=== PATIENT | male | born 1980 | race Hispanic/Latino ===

== ENCOUNTER 2017-04-16 20:29 | Emergency (ER) | payer OTHER ==
[2017-04-16 20:42] VITALS: BP 146/93
[2017-04-16] MEDS ORDERED: OFLOXACIN 50 DROP BTL LEFT EAR ONE (20:54)
[2017-04-16] MEDS ORDERED: AMOX TR/POTASSIUM CLAVULANATE 875 MG TABLET PO ONE (20:54)
--- NOTE | 2017-04-16 21:01 | ERNOTE ---
ENT HPI Date of Service: 04/16/17 Presenting Symptoms: other - ear pain Time Seen by Provider: 04/16/17 20:47 Source: patient Exam Limitations: no limitations - Immun/Allergies/Home Medications Immunizations: IMMUNIZATION HX Immunizations Up to Date Yes History of Influenza Vaccine Yes Hx Pneumococcal Vaccination Yes Allergies/Adverse Reactions: Allergies Allergy/AdvReac Type Severity Reaction Status Date / Time No Known Allergies Allergy Verified 04/16/17 20:42 Home Medications: HOME MEDICATIONS oxyCODONE HCL/ACETAMINOPHEN [Percocet 5 MG/325 MG] 1 tab PO Q4H PRN #20 tab [Last Taken Unknown] - History of Present Illness Narrative: Pt. comes in with c/o L ear pain for 12 hours. Pt. denies any SOB, CP, NVD, fever, recent illness, or injury but does state that an hour ago the ear started to drain orange fluid from the ear. Severity: Present: moderate ENT Location: Present: ear (L) Prearrival Treatment: Present: over the counter meds Modifying Factors - Improves: Reports: medication Modifying Factors - Worsens: Reports: nothing Associated Symptoms - ENT: Reports: ear drainage Prior Treament: Denies: treated by physician, similar symptoms before Review of Systems - Review of Systems Constitutional: Present: no symptoms reported. Absent: recent illness, fever, chills, weakness, fatigue, malaise EYE: Present: no symptoms reported ENT: Present: ear pain. Absent: ear discharge, nose pain, nose congestion, nasal drainage Respiratory: Present: no symptoms reported. Absent: shortness of breath, cough , wheezing Cardiology: Present: no symptoms reported. Absent: chest pain, palpitations, edema Gastrointestinal/Abdominal: Present: no symptoms reported. Absent: nausea, vomiting, diarrhea Genitourinary: Present: no symptoms reported Musculoskeletal: Present: no symptoms reported. Absent: back pain, joint pain Skin: Present: no symptoms reported. Absent: rash, change in color Neurological: Present: no symptoms reported. Absent: headache, dizziness/light- headedness, numbness, tingling All Other Systems: All systems neg except as marked - Patient's Past Medical History Patient History - Medical: No pertinent hx Patient History - Cardiac/Respiratory: No pertinent hx Patient History - Cancer: No Hx of Cancer Patient History - Surgical Procedures: No surgical history Patient History - Other: None - Social History Living Situations: home Psych History: No pertinent hx Smoking Status: Former smoker Alcohol Use: none Drug Use: none - Immunizations Immunizations Up to Date: Yes Hx Pneumococcal Vaccination: Yes History of Influenza Vaccine: Yes Physical Exam - Physical Exam General Appearance: Present: wd/wn, alert, no apparent distress Head Exam: Present: normal inspection, no evidence of injury Eye Exam: Normal inspection: bilateral, PERRL: bilateral, EOMI: bilateral Ears, Nose, Throat: Present: abnormal TM (L) - ruptured with purulent drainage, tonsillar exudate. Absent: abnormal TM (R), nasal congestion, sinus pain/ drainage Neck: Present: normal inspection, nontender. Absent: lymphadenopathy (R), lymphadenopathy (L) Respiratory: Present: no respiratory distress, normal breath sounds, no accessory muscle use, chest nontender, lungs clear Cardiovascular/Chest: Present: regular rate, rhythm, no murmur, normal peripheral pulses Gastrointestinal/Abdominal: Present: normal bowel sounds, nontender, nondistended, soft, no organomegaly Back Exam: Present: normal inspection Extremity Exam: Present: normal inspection Neurological Exam: Present: alert, oriented, normal mood/affect, no motor/ sensory deficits Skin Exam: Present: normal color, warm/dry. Absent: pallor, skin rash ED Progress - Vital Signs Patient's Vital Signs:: I have reviewed the patient's vital signs. Vital Signs: Vital Signs 04/16/17 20:38 Temperature 36.7 C Pulse Rate 86 Respiratory 16 Rate Blood Pressure 146/93 O2 Sat by Pulse 98 Oximetry - Progress/Reassessment Chief Complaint: Earache Departure Clinical Impression: Otitis media Qualifiers: Otitis media type: suppurative Chronicity: acute Laterality: left Recurrence: not specified as recurrent Spontaneous tympanic membrane rupture: with spontaneous rupture Qualified Code(s): H66.012 - Acute suppurative otitis media with spontaneous rupture of ear drum, left ear - Departure Disposition: Home self-care Condition: Good Instructions: Eardrum Perforation, [id number], Otitis Media, Adult, Easy-to- Read Additional Instructions: Please follow up with primary provider in 2-3 days Referrals: Gerardo Nowak MD [Primary Care Provider] - Prescriptions: oxyCODONE HCL/ACETAMINOPHEN [Percocet 5 MG/325 MG] 1 tab PO Q4H PRN #20 tab PRN Reason: Pain
[2017-04-16] MEDS ORDERED: OFLOXACIN 50 DROP BTL ONE (21:11)
[2017-04-16] MEDS ORDERED: AMOX TR/POTASSIUM CLAVULANATE 875 MG TABLET ONE (21:11)
== END 2017-04-16 21:17 | disposition home or self-care (01) ==
LOC: ER 20:29
DX: H66.012 Acute suppurative otitis media with spontaneous rupture of ear drum, left ear (principal); Z87.891 Personal history of nicotine dependence